=== PATIENT | female | born 1995 | race Caucasian/White ===

== ENCOUNTER 2019-03-25 16:02 | Emergency (ER) | payer OTHER, MEDICAID, SELFPAY ==
[2019-03-25 16:10] VITALS: BP 132/86; PULSE 86; RESP 20; TEMP 36.7; O2SAT 98; BMI 31.0
--- NOTE | 2019-03-25 17:29 | ED.HA ---
HPI - Headache General Chief Complaint: Headache Stated Complaint: HAVING ISSUES, MIGRAINE Time Seen by Provider: 03/25/19 16:32 Source: patient Mode of arrival: ambulatory Limitations: no limitations History of Present Illness HPI Narrative: Patient is a 24-year-old female who presents with headache. She has a history of migraine headache this presents similarly. She said this 1 started this morning. She is sensitive to light can open her eyes. She has been nauseous. She has taken a total of 6 Excedrin 4 initially and then 2 later. She states she is from [place] and they typically give her 2 pills she is not sure what the name of them are which help make her headache go away. She denies Imitrex. She states that she was previously allergic to Toradol while she was however she is no longer allergic to Toradol. She has been nauseous and vomiting throughout the day. No abdominal pain no diarrhea no fever no neck pain. MD Complaint: headache Onset description: sudden Location: frontal Severity: moderate Quality: sharp and similar to previous headaches Review of Systems Review of Systems GENERAL: Denies chills, fatigue, malaise, fever, sweats, travel HEENT: Denies sinus pain, ear pain, sore throat, difficulty swallowing, neck pain RESPIRATORY: Denies dyspnea, cough, wheezing, hemoptysis, sputum. CARDIOVASCULAR: Denies chest pain, palpitations, orthopnea, edema GASTROINTESTINAL: Nausea vomiting Denies abdominal pain, diarrhea, constipation, melena. : Denies dysuria, frequency, incontinence, hematuria, urinary retention, flank pain. MUSCULOSKELETAL: Denies weakness, joint pain, or bony pain SKIN: No rash, no erythema, no pruritus NEUROLOGIC: See HPI PSYCHIATRIC: No concerning psychosocial issues. 12 point review of systems is negative except for those stated above and HPI [facility] Medical History Status post tubal ligation (Acute) Social History Smoking Status: Current every day smoker Social History Smoking Status: Current every day smoker Exam Initial Vital Signs Initial Vital Signs: Vital Signs Temperature 98.0 F 03/25/19 16:10 Pulse Rate 86 03/25/19 16:10 Respiratory Rate 20 03/25/19 16:10 Blood Pressure 132/86 03/25/19 16:10 Pulse Oximetry 98 03/25/19 16:10 GENERAL: Patient appears in pain wearing sunglasses curled up in dark room HEENT: Head atraumatic,EOMI, pupils reactive, face symmetric, moist mucous membranes NECK: Supple no meningeal signs CARDIOVASCULAR: Regular rate and rhythm without murmurs, rubs or gallops. RESPIRATORY: Breath sounds equal bilaterally, no wheezes rales or rhonchi. ABDOMEN: Soft, nontender. Normoactive bowel sounds all 4 quadrants. No guarding or rebound. EXTREMITIES: Normal range of motion, no clubbing or edema. Neurovascularly intact NEUROLOGICAL: Alert and oriented x4.Normal gait and speech. Cranial nerves II through XII grossly intact. 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 Course Orders Ordered: Discontinued Medications Diphenhydramine HCl (Benadryl) 25 mg IV NOW ONE Stop: 03/25/19 17:27 Last Admin: 03/25/19 17:47 Dose: 25 mg Sodium Chloride (Normal Saline 0.9%) 1,000 mls @ 1,000 mls/hr IV BOLUS ONE Stop: 03/25/19 18:25 Last Admin: 03/25/19 17:47 Dose: 1,000 mls/hr Ketorolac Tromethamine (Toradol) 30 mg IV NOW ONE Stop: 03/25/19 17:27 Last Admin: 03/25/19 17:47 Dose: 30 mg Prochlorperazine (Compazine) 10 mg IV NOW ONE Stop: 03/25/19 17:27 Last Admin: 03/25/19 17:47 Dose: 10 mg Vital Signs - 8 hr 03/25/19 16:10 03/25/19 17:47 Temperature 98.0 F Pulse Rate 86 86 Respiratory Rate 20 Blood Pressure 132/86 132/86 Pulse Oximetry 98 MDM - Headache Lab Data Point of Care Testing Test Results Negative MDM Narrative Medical decision making narrative: The patient overall feeling much better after migraine cocktail. She is requesting to go home. At this time I see no need for imaging headaches are similar to previous migraine. No focal deficits. Discharge Plan Departure Patient Disposition: Home Clinical Impression: Migraine Qualifiers: Migraine type: without aura Status migrainosus presence: without status migrainosus Intractability: not intractable Qualified Code(s): G43.009 - Migraine without aura, not intractable, without status migrainosus Instructions: DI for Migraine Activity Restrictions/Additional Instructions: *You have been diagnosed with migraine headache *What to do: Rest, increase fluid as tolerated. If having more frequent headaches he may need to see Neurology *Continue to take medications as directed *Follow up with your primary care provider in 2-3 days *Return to ER if you should have worsening headache persistent vomiting weakness or any new, worsening or concerning symptoms Referrals: [facility] [Outside] Ion Chavez MD [Non-Staff] -
--- NOTE | 2019-03-25 17:35 | ED_ITS ---
HPI - Headache General Chief Complaint: Headache Stated Complaint: HAVING ISSUES, MIGRAINE Time Seen by Provider: 03/25/19 16:32 Source: patient Mode of arrival: ambulatory Limitations: no limitations History of Present Illness HPI Narrative: Patient is a 24-year-old female who presents with headache. She has a history of migraine headache this presents similarly. She said this 1 started this morning. She is sensitive to light can open her eyes. She has been nauseous. She has taken a total of 6 Excedrin 4 initially and then 2 later. She states she is from [place] and they typically give her 2 pills she i s not sure what the name of them are which help make her headache go away. She denies Imitrex. She states that she was previously allergic to Toradol while she was however she is no longer allergic to Toradol. She has been nauseous and vomiting throughout the day. No abdominal pain no diarrhea no fever no neck pain. MD Complaint: headache Onset description: sudden Location: frontal Severity: moderate Quality: sharp and similar to previous headaches Review of Systems Review of Systems GENERAL: Denies chills, fatigue, malaise, fever, sweats, travel HEENT: Denies sinus pain, ear pain, sore throat, difficulty swallowing, neck pain RESPIRATORY: Denies dyspnea, cough, wheezing, hemoptysis, sputum. CARDIOVASCULAR: Denies chest pain, palpitations, orthopnea, edema GASTROINTESTINAL: Nausea vomiting Denies abdominal pain, diarrhea, constipation, melena. : Denies dysuria, frequency, incontinence, hematuria, urinary retention, flank pain. MUSCULOSKELETAL: Denies weakness, joint pain, or bony pain SKIN: No rash, no erythema, no pruritus NEUROLOGIC: See HPI PSYCHIATRIC: No concerning psychosocial issues. 12 point review of systems is negative except for those stated above and HPI [facility] Medical History Status post tubal ligation (Acute) Social History Smoking Status: Current every day smoker Social History Smoking Status: Current every day smoker Exam Initial Vital Signs Initial Vital Signs: Vital Signs Temperature 98.0 F 03/25/19 16:10 Pulse Rate 86 03/25/19 16:10 Respiratory Rate 20 03/25/19 16:10 Blood Pressure 132/86 03/25/19 16:10 Pulse Oximetry 98 06/27/19 16:10 GENERAL: Patient appears in pain wearing sunglasses curled up in dark room HEENT: Head atraumatic,EOMI, pupils reactive, face symmetric, moist mucous membranes NECK: Supple no meningeal signs CARDIOVASCULAR: Regular rate and rhythm without murmurs, rubs or gallops. RESPIRATORY: Breath sounds equal bilaterally, no wheezes rales or rhonchi. ABDOMEN: Soft, nontender. Normoactive bowel sounds all 4 quadrants. No guarding or rebound. EXTREMITIES: Normal range of motion, no clubbing or edema. Neurovascularly intact NEUROLOGICAL: Alert and oriented x4.Normal gait and speech. Cranial nerves II through XII grossly intact. 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 Course Orders Ordered: Discontinued Medications Diphenhydramine HCl (Benadryl) 25 mg IV NOW ONE Stop: 03/25/19 17:27 Last Admin: 03/25/19 17:47 Dose: 25 mg Sodium Chloride (Normal Saline 0.9%) 1,000 mls @ 1,000 mls/hr IV BOLUS ONE Stop: 03/25/19 18:25 Last Admin: 03/25/19 17:47 Dose: 1,000 mls/hr Ketorolac Tromethamine (Toradol) 30 mg IV NOW ONE Stop: 03/25/19 17:27 Last Admin: 03/25/19 17:47 Dose: 30 mg Prochlorperazine (Compazine) 10 mg IV NOW ONE Stop: 03/25/19 17:27 Last Admin: 03/25/19 17:47 Dose: 10 mg Vital Signs - 8 hr 03/25/19 16:10 03/25/19 17:47 Temperature 98.0 F Pulse Rate 86 86 Respiratory Rate 20 Blood Pressure 132/86 132/86 Pulse Oximetry 98 MDM - Headache Lab Data Point of Care Testing Test Results Negative MDM Narrative Medical decision making narrative: The patient overall feeling much better after migraine cocktail. She is requesting to go home. At this time I see no need for imaging headaches are similar to previous migraine. No focal deficits. Discharge Plan Departure Patient Disposition: Home Clinical Impression: Migraine Qualifiers: Migraine type: without aura Status migrainosus presence: without status migrainosus Intractability: not intractable Qualified Code(s): G43.009 - Migraine without aura, not intractable, without status migrainosus Instructions: DI for Migraine Activity Restrictions/Additional Instructions: *You have been diagnosed with migraine headache *What to do: Rest, increase fluid as tolerated. If having more frequent headaches he may need to see Neurology *Continue to take medications as directed *Follow up with your primary care provider in 2-3 days *Return to ER if you should have worsening headache persistent vomiting weakness or any new, worsening or concerning symptoms Referrals: [facility] [Outside] Ion Chavez MD [Non-Staff] -
[2019-03-25 17:47] VITALS: BP 132/86; PULSE 86
[2019-03-25] MEDS: KETOROLAC 60 MG/2 ML VIAL 30 MG IV (17:47)
[2019-03-25] MEDS: diphenhydrAMINE 50 MG/ML VIAL 25 MG IV (17:47)
[2019-03-25] MEDS: PROCHLORPERAZINE 10 MG/2 ML VIAL IV (17:47)
[2019-03-25] MEDS: SODIUM CHLORIDE 0.9% 1,000 ML 1000 ML IV (17:47)
[2019-03-25 18:43] VITALS: BP 118/74; PULSE 58; RESP 16; O2SAT 99
== END 2019-03-25 18:48 | disposition home or self-care (01) ==
PROVIDERS: Emergency Provider Emergency Medicine
DX: G43.009 Migraine without aura, not intractable, without status migrainosus (principal)
CPT/HCPCS: 81025; 96361; 96374; 96375; 99283; 99284; J0780; J1200; J1885